=== PATIENT | female | born 1960 ===

== ENCOUNTER 2021-09-03 11:00 | Inpatient (IN) | payer OTHER ==
[~2021-09-03] VITALS: Ht 160 cm; Wt 81.6 kg
[2021-09-03] MEDS ORDERED: TIROSINT25 MCG PO (13:08)
[2021-09-03] MEDS ORDERED: TENORMIN25 MG PO (13:08)
[2021-09-03] MEDS ORDERED: LOSARTAN POTAS100 MG PO (13:08)
[2021-09-03] MEDS ORDERED: ALPRAZOLAM XR2 MG PO (13:09)
[2021-09-03] MEDS ORDERED: NABUMETONE750 MG PO (13:09)
[2021-09-03] MEDS ORDERED: ONE DAILY MEN'1 EACH PO (13:10)
[2021-09-06] MEDS ORDERED: COLACE100 MG PO (11:18)
[2021-09-06] MEDS ORDERED: MEDROLPACK PO (11:24)
[2021-09-06] MEDS ORDERED: NEURONTIN800 MG PO (11:24)
[2021-09-06] MEDS ORDERED: PERCOCET 5-3251 EACH PO (11:24)
[2021-09-06] MEDS ORDERED: AMOX-CLAV 875-1 EACH PO (11:24)
== END 2021-09-08 11:57 | disposition home or self-care (01) | DRG 455 ==
LOC: ADM 11:00 → O/R 09-06 06:32 → PED 09-06 06:32 → SURH 09-06 11:00 → CIR.AMB 09-06 11:00 → EDSTATUS 09-06 11:00 → SURH 09-06 16:00 → PED 09-06 17:34
PROVIDERS: ADMIT Orthopaedic Surgery Orthopaedic Surgery of the Spine; ATTEND Orthopaedic Surgery Orthopaedic Surgery of the Spine
PROC: 0SG1071 Fusion of 2 or more Lumbar Vertebral Joints with Autologous Tissue Substitute, Posterior Approach, Posterior Column, Open Approach (ICD-10-PCS; 2021-09-06)
PROC: 0QB30ZZ Excision of Left Pelvic Bone, Open Approach (ICD-10-PCS; 2021-09-06)
PROC: 0ST20ZZ Resection of Lumbar Vertebral Disc, Open Approach (ICD-10-PCS; 2021-09-06)
PROC: 07DR0ZZ Extraction of Iliac Bone Marrow, Open Approach (ICD-10-PCS; 2021-09-06)
PROC: 0SG10A0 Fusion of 2 or more Lumbar Vertebral Joints with Interbody Fusion Device, Anterior Approach, Anterior Column, Open Approach (ICD-10-PCS; principal; 2021-09-06 16:00)
DX: M48.062 Spinal stenosis, lumbar region with neurogenic claudication (principal); M41.56 Other secondary scoliosis, lumbar region; M51.36 Other intervertebral disc degeneration, lumbar region; I10 Essential (primary) hypertension; E03.8 Other specified hypothyroidism